=== PATIENT | female | born 1940 | race Caucasian/White ===

== ENCOUNTER 2020-09-11 05:07 | Day surgery (SDC) | payer OTHER ==
[2020-09-08 14:45] VITALS: BMI 23.8
[2020-09-11 13:02] VITALS: TEMP 97.6
[2020-09-11 14:53] VITALS: BP 141/73; PULSE 69
== END 2020-09-11 14:25 | disposition home or self-care (01) ==
LOC: JASU-ENDO 05:07
PROVIDERS: ATTEND Internal Medicine Gastroenterology
PROC: 0DB78ZX Excision of Stomach, Pylorus, Via Natural or Artificial Opening Endoscopic, Diagnostic (ICD-10-PCS; principal; 2020-09-11 12:00)
DX: K29.00 Acute gastritis without bleeding (principal); K29.40 Chronic atrophic gastritis without bleeding; K57.10 Diverticulosis of small intestine without perforation or abscess without bleeding; R10.13 Epigastric pain
CPT/HCPCS: 88305-TC; 88342-TC

== ENCOUNTER 2023-12-23 15:08 | Emergency (ER) | payer OTHER ==
[2023-12-23 15:16] VITALS: TEMP 98.7; BMI 27.1
[2023-12-23 16:55] LABS: INR 0.98 (0.83-1.09); PROTHROMBIN TIME (PATIENT) 11.1 SEC (9.7-13.0)
[2023-12-23 16:57] LABS: ACTIVATED PTT 17.7 SECONDS (25.2-36.5)
[2023-12-23 17:06] LABS: POTASSIUM 4.3 mmol/L (3.5-5.1)
[2023-12-23 17:08] LABS: CALCIUM 8.7 mg/dL (8.5-10.1)
[2023-12-23 17:09] LABS: ALBUMIN 3.3 g/dl (3.4-5.0); BLOOD UREA NITROGEN 19.8 mg/dL (7-18)
[2023-12-23 17:12] LABS: CREATININE 0.7 mg/dL (0.55-1.3)
[2023-12-23 17:14] LABS: BILIRUBIN,TOTAL 0.8 mg/dL (0.2-1); TOT PROT 6.7 g/dl (6.4-8.2)
[2023-12-23 18:20] LABS: BASO % 0.6 % (0-2.0); EOS % 7.2 % (0-4.5); HEMOGLOBIN 11.1 GM/dL (10.7-15.3); LYMPH % 30.5 % (8-40); MCH 26.1 pg (25.7-33.7); MCHC 32.6 g/dl (32.0-36.0); MEAN CELL VOLUME 80.2 fl (80-96); MEAN PLT VOLUME 6.7 fl (7.5-11.1); MONO % 6.4 % (3.8-10.2); NEUT % 55.3 % (42.8-82.8); PLATELET COUNT 234 10^3/uL (134-434); RBC 4.24 M/mm3 (3.60-5.2); RDW 16.4 % (11.6-15.6); WHITE BLOOD COUNT 6.1 K/mm3 (4.0-10.0)
[2023-12-23 18:29] LABS: INR 1.05 (0.83-1.09); PROTHROMBIN TIME (PATIENT) 11.9 SEC (9.7-13.0)
[2023-12-23 20:10] VITALS: BP 144/87; PULSE 87; RESP 19
== END 2023-12-23 20:19 | disposition home or self-care (01) ==
LOC: JER 15:08
DX: M25.462 Effusion, left knee (principal); R79.1 Abnormal coagulation profile; R06.09 Other forms of dyspnea
CPT/HCPCS: 36415; 71275-TC; 80053; 83880; 84484; 85025; 85379; 85610; 85730; 86850; 86900; 86901; 93005; 93010; 93970-TC; 99285-25; Q9967